=== PATIENT | female | born 1980 | race Caucasian/White ===

== ENCOUNTER 2019-08-18 22:17 | Emergency (ER) | payer MEDICAID ==
[~2019-08-18] VITALS: Ht 154.9 cm; Wt 54.4 kg
[2019-08-19 00:01] VITALS: BP 144/91
[2019-08-19] MEDS ORDERED: FLUORESCEIN SOD 1 MG TEST STRIP RIGHTEYE ONE (00:15)
[2019-08-19] MEDS ORDERED: TETRACAINE HCL 0.5% OPTH(EYE) SOLN 4ML RIGHTEYE ONE (00:15)
== END 2019-08-19 01:30 | disposition home or self-care (01) ==
LOC: ER 22:17
DX: S05.8X1A Other injuries of right eye and orbit, initial encounter (principal); H16.001 Unspecified corneal ulcer, right eye; T15.01XA Foreign body in cornea, right eye, initial encounter; H02.842 Edema of right lower eyelid; H02.841 Edema of right upper eyelid; X58.XXXA Exposure to other specified factors, initial encounter; Y92.89 Other specified places as the place of occurrence of the external cause; Y99.8 Other external cause status; Y93.89 Activity, other specified